=== PATIENT | female | born 1955 | race Caucasian/White ===

== ENCOUNTER 2019-01-23 07:25 | Outpatient (CLI) | payer MEDICARE | END 2019-01-23 23:59 | disposition home or self-care (01) | LOC: CVU 07:25 | PROVIDERS: ATTEND Family Medicine | DX: I08.0 Rheumatic disorders of both mitral and aortic valves (principal) | CPT/HCPCS: 93017; 93225; 93226; 93306 ==

== ENCOUNTER 2020-01-26 08:59 | Outpatient (CLI) | payer MEDICARE ==
[~2020-01-26 08:59] MED LIST: ASPI-496 PO; ASPI-515 PO; ATEN25TA PO; CA C1TAB60 PO; CHOL2000 PO; GABA-826 PO; GLUC1TAB35 PO; GLUC1TAB9 PO; HYDR-3237 PO; LEVO112T2 PO; MULT-642 PO; OMEG300C PO; OMEP-110 PO; OXYC5TAB3 PO; RIVA10TA2 PO; SERT25TA3 PO; SERT50TA28 PO; TAMS-11 PO; TRAM50TA2 PO; VALS320T2 PO; VITA1TAB PO; lutein PO
== END 2020-01-26 23:59 | disposition home or self-care (01) ==
LOC: CVU 08:59
PROVIDERS: ATTEND Family Medicine
DX: I08.0 Rheumatic disorders of both mitral and aortic valves (principal); I11.9 Hypertensive heart disease without heart failure
CPT/HCPCS: 93306